=== PATIENT | female | born 1945 | race Caucasian/White ===

== ENCOUNTER 2021-03-25 17:30 | Inpatient (IN) | payer MEDICARE ==
[~2021-03-25] VITALS: Ht 162.6 cm; Wt 74.0 kg
[2021-03-25] MEDS ORDERED: FENTANYL CITRATE/PF 50MCG/ML 2ML VIAL IV ONE (17:45)
[2021-03-25] MEDS ORDERED: FENTANYL CITRATE/PF 50MCG/ML 2ML VIAL IV NR (17:45)
[2021-03-25 17:57] LABS: HEMATOCRIT. 43.5 % (36.0-48.0); HEMOGLOBIN. 14.5 g/dL (12.0-16.0); MEAN CORPUSCULAR HEMOGLOBIN 33.8 pg (28.0-32.0); MEAN CORPUSCULAR VOLUME 101.1 fL (81.0-99.0); MEAN PLATELET VOLUME 7.9 fl (7.4-10.4); PLATELET 228 x1000/uL (130-400); RED BLOOD CELL COUNT 4.31 mill/uL (4.2-5.4); RED CELL DISTRIBUTION WIDTH 13.6 % (11.6-14.6)
[2021-03-25] MEDS ORDERED: DILTIAZEM HCL 125 MG in DEXT 5% WATER 100 ML IV ONE (18:00)
[2021-03-25] MEDS ORDERED: DILTIAZEM HCL 5MG/ML 5ML VIAL IV PRN (18:00)
[2021-03-25 18:04] LABS: CHLORIDE 102 mEq/L (98-107)
[2021-03-25 18:06] LABS: INR 1.1; PROTHROMBIN TIME 11.6 sec (9.6-11.0)
[2021-03-25 18:08] LABS: ETHANOL BLOOD < 10 mg/dL
[2021-03-25 18:10] LABS: PHOSPHORUS 1.9 mg/dL (2.5-4.9)
[2021-03-25] MEDS ORDERED: DILTIAZEM HCL 125 MG in DEXT 5% WATER 100 ML IV NR (18:15)
[2021-03-25 18:29] LABS: PLATELET ESTIMATE NORMAL
[2021-03-25] MEDS ORDERED: ENOXAPARIN 80MG/0.8ML SYR SUBCUT NR (20:15)
[2021-03-25 23:00] LABS: CLARITY URINE CLOUDY (CLEAR); COLOR URINE DARK YELLOW (YELLOW); KETONES URINE TRACE (NEGATIVE); LEUKOCYTE ESTERASE URINE NEGATIVE (NEGATIVE); NITRITE URINE NEGATIVE (NEGATIVE); OCCULT BLOOD URINE NEGATIVE (NEGATIVE); PROTEIN URINE 1+ (NEGATIVE); SPECIFIC GRAVITY URINE 1.028 (1.005-1.030)
[2021-03-25 23:05] VITALS: BP 141/79
[2021-03-25 23:12] LABS: *BENZODIAZEPINES SCREEN URINE NEGATIVE (NEGATIVE); *COCAINE SCREEN URINE NEGATIVE (NEGATIVE); METHADONE URINE SCREEN NEGATIVE (NEGATIVE); OPIATES URINE SCREEN NEGATIVE (NEGATIVE)
[2021-03-25 23:13] LABS: *AMPHETAMINES SCREEN URINE NEGATIVE (NEGATIVE); *BARBITURATES SCREEN URINE NEGATIVE (NEGATIVE); CANNABINOID URINE SCREEN NEGATIVE (NEGATIVE); PHENCYCLIDINE URINE SCREEN NEGATIVE (NEGATIVE)
[2021-03-25] MEDS ORDERED: THYR30TA2 MT (23:23)
[2021-03-25 23:41] VITALS: BP 141/79
[2021-03-26] VITALS (19 sets, daily range): BP systolic 78–154; BP diastolic 48–95
[2021-03-26] MEDS ORDERED: DEXTROSE 50% WATER 50ML SYRINGE IV PRN (00:15)
[2021-03-26] MEDS: BLOOD SUGAR DIAGNOSTIC STRIP TEST SCH ×2 (06:22→11:25)
[2021-03-26] MEDS: INSULIN LISPRO 100 UNITS/ML SUBCUT SCH ×2 (06:22→11:44)
[2021-03-26 07:00] LABS: HEMATOCRIT. 38.5 % (36.0-48.0); HEMOGLOBIN. 13.1 g/dL (12.0-16.0); MEAN CORPUSCULAR HEMOGLOBIN 34.4 pg (28.0-32.0); MEAN CORPUSCULAR VOLUME 101.1 fL (81.0-99.0); MEAN PLATELET VOLUME 8.2 fl (7.4-10.4); PLATELET 192 x1000/uL (130-400); RED CELL DISTRIBUTION WIDTH 13.8 % (11.6-14.6)
[2021-03-26 07:09] LABS: CHLORIDE 103 mEq/L (98-107)
[2021-03-26 07:17] LABS: LDL CHOLESTEROL 56 mg/dL (5-100)
[2021-03-26 07:21] LABS: HDL CHOLESTEROL 77 mg/dL (40-59); T4 FREE 0.99 ng/dL (0.76-1.46)
[2021-03-26] MEDS: APIXABAN 5 MG TABLET PO SCH ×2 (08:13→16:08)
[2021-03-26] MEDS: METOPROLOL TARTRATE 50MG TABLET PO SCH ×2 (08:14→21:00)
[2021-03-26] MEDS: MAGNESIUM OXIDE 400MG TABLET PO SCH (08:14)
[2021-03-26] MEDS ORDERED: AMIODARONE HCL 150 MG in DEXT 5% WATER 100 ML IV ONE (08:30)
[2021-03-26] MEDS ORDERED: AMIODARONE HCL 900 MG in DEXT 5% WATER 482 ML IV SCH (09:00)
[2021-03-26] MEDS ORDERED: AMIODARONE HCL 150 MG in DEXT 5% WATER 100 ML IV SCH (09:00)
[2021-03-26] MEDS: SODIUM CHLORIDE 0.45% 1,000 ML IV SCH (11:44)
[2021-03-26] MEDS ORDERED: ONDANSETRON HCL 4MG/2ML INJ IV PRN ×2 (12:30)
[2021-03-26 14:20] LABS: PLATELET ESTIMATE NORMAL
[2021-03-27] VITALS (13 sets, daily range): BP systolic 82–130; BP diastolic 53–89
[2021-03-27] MEDS: SODIUM CHLORIDE 0.45% 1,000 ML IV SCH (00:15)
[2021-03-27] MEDS ORDERED: LACTULOSE 20G/30ML UDC PO SCH (08:00)
[2021-03-27] MEDS: BISACODYL 10MG SUPP PR SCH ×2 (08:00→10:34)
[2021-03-27] MEDS: SODIUM CHLORIDE 0.9% 1,000 ML IV SCH ×2 (09:48→20:27)
[2021-03-27] MEDS: APIXABAN 5 MG TABLET PO SCH (09:49)
[2021-03-27] MEDS: MAGNESIUM OXIDE 400MG TABLET PO SCH (09:49)
[2021-03-27 10:47] LABS: HEMATOCRIT. 42.7 % (36.0-48.0); HEMOGLOBIN. 13.9 g/dL (12.0-16.0); MEAN CORPUSCULAR HEMOGLOBIN 33.5 pg (28.0-32.0); MEAN CORPUSCULAR VOLUME 102.8 fL (81.0-99.0); RED BLOOD CELL COUNT 4.16 mill/uL (4.2-5.4); RED CELL DISTRIBUTION WIDTH 13.7 % (11.6-14.6)
[2021-03-27] MEDS ORDERED: SODIUM POLYSTYRENE SULFONATE 15 G/60 ML BOT PO NR (11:00)
[2021-03-27 11:11] LABS: PHOSPHORUS 5.1 mg/dL (2.5-4.9)
[2021-03-27] MEDS ORDERED: THYROID 30 MG PO SCH (11:15)
[2021-03-27 11:45] LABS: PLATELET ESTIMATE MARKEDLY DECREASED
[2021-03-27 11:50] LABS: PLATELET 30 x1000/uL (130-400)
[2021-03-27] MEDS: THYROID 60 MG PO SCH (15:30)
[2021-03-28] VITALS (12 sets, daily range): BP systolic 99–128; BP diastolic 52–75
[2021-03-28] MEDS: SODIUM CHLORIDE 0.9% 1,000 ML IV SCH ×2 (06:52→21:16)
[2021-03-28] MEDS: THYROID 60 MG PO SCH (06:52)
[2021-03-28 07:03] LABS: HEMATOCRIT. 41.4 % (36.0-48.0); HEMOGLOBIN. 13.6 g/dL (12.0-16.0); MEAN CORPUSCULAR HEMOGLOBIN 33.3 pg (28.0-32.0); MEAN CORPUSCULAR VOLUME 101.1 fL (81.0-99.0); MEAN PLATELET VOLUME 9.4 fl (7.4-10.4); RED BLOOD CELL COUNT 4.09 mill/uL (4.2-5.4); RED CELL DISTRIBUTION WIDTH 13.4 % (11.6-14.6)
[2021-03-28 07:26] LABS: PLATELET 24 x1000/uL (130-400)
[2021-03-28] MEDS: MAGNESIUM OXIDE 400MG TABLET PO SCH (09:09)
[2021-03-28 19:19] LABS: PLATELET ESTIMATE MARKEDLY DECREASED
[2021-03-29] VITALS (15 sets, daily range): BP systolic 105–147; BP diastolic 26–74
[2021-03-29] MEDS ORDERED: AMIODARONE HCL 900 MG in DEXT 5% WATER 482 ML IV SCH (03:00)
[2021-03-29 05:08] LABS: HEMATOCRIT. 39.3 % (36.0-48.0); HEMOGLOBIN. 13.3 g/dL (12.0-16.0); MEAN CORPUSCULAR HEMOGLOBIN 33.8 pg (28.0-32.0); MEAN CORPUSCULAR VOLUME 100.2 fL (81.0-99.0); MEAN PLATELET VOLUME 11.3 fl (7.4-10.4); RED BLOOD CELL COUNT 3.92 mill/uL (4.2-5.4); RED CELL DISTRIBUTION WIDTH 13.6 % (11.6-14.6)
[2021-03-29] MEDS: AMIODARONE HCL 200 MG TABLET PO SCH ×3 (05:42→21:35)
[2021-03-29] MEDS: SODIUM CHLORIDE 0.9% 1,000 ML IV SCH ×3 (05:43→21:36)
[2021-03-29] MEDS: THYROID 60 MG PO SCH (06:31)
[2021-03-29 06:35] LABS: PLATELET 33 x1000/uL (130-400)
[2021-03-29] MEDS: MAGNESIUM OXIDE 400MG TABLET PO SCH (08:12)
[2021-03-29] MEDS ORDERED: SODIUM POLYSTYRENE SULFONATE 15 G/60 ML BOT PO NR (11:30)
[2021-03-29 16:14] LABS: PLATELET ESTIMATE MARKEDLY DECREASED
[2021-03-30] VITALS (20 sets, daily range): BP systolic 104–132; BP diastolic 53–73
[2021-03-30] MEDS: THYROID 60 MG PO SCH (06:21)
[2021-03-30] MEDS: AMIODARONE HCL 200 MG TABLET PO SCH ×3 (06:21→22:04)
[2021-03-30 07:58] LABS: HEMATOCRIT. 39.5 % (36.0-48.0); HEMOGLOBIN. 13.5 g/dL (12.0-16.0); MEAN CORPUSCULAR HEMOGLOBIN 33.8 pg (28.0-32.0); MEAN CORPUSCULAR VOLUME 99.3 fL (81.0-99.0); MEAN PLATELET VOLUME 11.2 fl (7.4-10.4); RED BLOOD CELL COUNT 3.98 mill/uL (4.2-5.4); RED CELL DISTRIBUTION WIDTH 13.8 % (11.6-14.6)
[2021-03-30 08:03] LABS: PLATELET 30 x1000/uL (130-400)
[2021-03-30] MEDS: MAGNESIUM OXIDE 400MG TABLET PO SCH (08:33)
[2021-03-30 10:10] LABS: PLATELET ESTIMATE MARKEDLY DECREASED
[2021-03-30] MEDS ORDERED: LIDOCAINE HCL 1% 10 MG/ML 10ML VIAL ONE (10:38)
[2021-03-30 14:36] LABS: HEPATITIS B SURFACE ANTIGEN NEGATIVE
[2021-03-31] VITALS (12 sets, daily range): BP systolic 107–140; BP diastolic 57–79
[2021-03-31] MEDS: AMIODARONE HCL 200 MG TABLET PO SCH ×3 (05:05→21:04)
[2021-03-31] MEDS: THYROID 60 MG PO SCH (07:43)
[2021-03-31 08:36] LABS: HEMATOCRIT. 41.7 % (36.0-48.0); HEMOGLOBIN. 14.3 g/dL (12.0-16.0); MEAN CORPUSCULAR HEMOGLOBIN 34.2 pg (28.0-32.0); MEAN PLATELET VOLUME 9.1 fl (7.4-10.4); PLATELET 72 x1000/uL (130-400); RED BLOOD CELL COUNT 4.17 mill/uL (4.2-5.4); RED CELL DISTRIBUTION WIDTH 13.7 % (11.6-14.6)
[2021-03-31] MEDS: MAGNESIUM OXIDE 400MG TABLET PO SCH (08:36)
[2021-03-31 13:43] LABS: PLATELET ESTIMATE DECREASED
[2021-04-01] VITALS (12 sets, daily range): BP systolic 110–154; BP diastolic 58–86
[2021-04-01] MEDS: THYROID 60 MG PO SCH (06:18)
[2021-04-01] MEDS: AMIODARONE HCL 200 MG TABLET PO SCH ×3 (06:18→23:27)
[2021-04-01] MEDS: MAGNESIUM OXIDE 400MG TABLET PO SCH (08:22)
[2021-04-01 08:40] LABS: HEMATOCRIT. 41.8 % (36.0-48.0); HEMOGLOBIN. 13.9 g/dL (12.0-16.0); MEAN CORPUSCULAR HEMOGLOBIN 33.4 pg (28.0-32.0); MEAN CORPUSCULAR VOLUME 100.7 fL (81.0-99.0); PLATELET 96 x1000/uL (130-400); RED BLOOD CELL COUNT 4.15 mill/uL (4.2-5.4)
[2021-04-01 14:27] LABS: PLATELET ESTIMATE NORMAL
[2021-04-01] MEDS: APIXABAN 2.5 MG TABLET PO SCH (20:21)
[2021-04-02] VITALS (19 sets, daily range): BP systolic 106–153; BP diastolic 56–96
[2021-04-02] MEDS: AMIODARONE HCL 200 MG TABLET PO SCH ×3 (06:00→23:12)
[2021-04-02] MEDS ORDERED: THYROID 60MG TABLET PO SCH (09:00)
[2021-04-02 09:08] LABS: HEMATOCRIT. 40.8 % (36.0-48.0); HEMOGLOBIN. 13.9 g/dL (12.0-16.0); MEAN CORPUSCULAR HEMOGLOBIN 34.3 pg (28.0-32.0); MEAN CORPUSCULAR VOLUME 100.4 fL (81.0-99.0); MEAN PLATELET VOLUME 8.3 fl (7.4-10.4); PLATELET 100 x1000/uL (130-400); RED BLOOD CELL COUNT 4.06 mill/uL (4.2-5.4); RED CELL DISTRIBUTION WIDTH 14.1 % (11.6-14.6)
[2021-04-02] MEDS: MAGNESIUM OXIDE 400MG TABLET PO SCH (09:10)
[2021-04-02] MEDS: APIXABAN 2.5 MG TABLET PO SCH ×2 (09:10→23:12)
[2021-04-02 09:29] LABS: PHOSPHORUS 3.5 mg/dL (2.5-4.9)
[2021-04-02] MEDS: DILTIAZEM HCL 60MG TABLET PO SCH ×3 (10:27→23:12)
[2021-04-02 16:29] LABS: PLATELET ESTIMATE DECREASED
[2021-04-03] VITALS (11 sets, daily range): BP systolic 110–139; BP diastolic 54–81
[2021-04-03] MEDS: AMIODARONE HCL 200 MG TABLET PO SCH ×2 (05:44→17:43)
[2021-04-03] MEDS: DILTIAZEM HCL 60MG TABLET PO SCH ×3 (05:45→22:26)
[2021-04-03 07:26] LABS: BASOPHILS % 0.4 % (0.0-2.0); EOSINOPHILS % 1.1 % (0.0-5.0); HEMATOCRIT. 40.2 % (36.0-48.0); HEMOGLOBIN. 13.7 g/dL (12.0-16.0); LYMPHOCYTES % 8.4 % (20.0-50.0); MEAN CORPUSCULAR HEMOGLOBIN 34.3 pg (28.0-32.0); MEAN CORPUSCULAR VOLUME 100.1 fL (81.0-99.0); MEAN PLATELET VOLUME 8.1 fl (7.4-10.4); MONOCYTES % 5.9 % (2.0-8.0); NEUTROPHILS % 84.2 % (40.0-76.0); PLATELET 92 x1000/uL (130-400); RED BLOOD CELL COUNT 4.01 mill/uL (4.2-5.4); RED CELL DISTRIBUTION WIDTH 14.4 % (11.6-14.6)
[2021-04-03] MEDS: APIXABAN 2.5 MG TABLET PO SCH ×2 (08:31→20:27)
[2021-04-03] MEDS: MAGNESIUM OXIDE 400MG TABLET PO SCH (08:31)
[2021-04-03] MEDS ORDERED: ARMOUR THYROID 30 MG PO SCH (09:00)
[2021-04-04] VITALS (12 sets, daily range): BP systolic 105–134; BP diastolic 46–85
[2021-04-04] MEDS: DILTIAZEM HCL 60MG TABLET PO SCH (06:17)
[2021-04-04] MEDS: AMIODARONE HCL 200 MG TABLET PO SCH (06:17)
[2021-04-04 07:03] LABS: HEMATOCRIT. 37.9 % (36.0-48.0); HEMOGLOBIN. 12.7 g/dL (12.0-16.0); MEAN CORPUSCULAR HEMOGLOBIN 33.6 pg (28.0-32.0); MEAN PLATELET VOLUME 8.8 fl (7.4-10.4); PLATELET 95 x1000/uL (130-400); RED BLOOD CELL COUNT 3.79 mill/uL (4.2-5.4); RED CELL DISTRIBUTION WIDTH 14.1 % (11.6-14.6)
[2021-04-04] MEDS: APIXABAN 2.5 MG TABLET PO SCH ×2 (08:13→19:53)
[2021-04-04] MEDS: ARMOUR THYROID 30 MG PO SCH (08:14)
[2021-04-04] MEDS: MAGNESIUM OXIDE 400MG TABLET PO SCH (08:14)
[2021-04-04] MEDS: DILTIAZEM HCL 30MG TABLET PO SCH ×2 (12:00→17:08)
[2021-04-04 21:31] LABS: PLATELET ESTIMATE DECREASED
[2021-04-05] VITALS (13 sets, daily range): BP systolic 104–134; BP diastolic 53–93
[2021-04-05] MEDS: DILTIAZEM HCL 30MG TABLET PO SCH ×5 (01:50→17:14)
[2021-04-05 07:38] LABS: HEMOGLOBIN. 13.1 g/dL (12.0-16.0); MEAN CORPUSCULAR HEMOGLOBIN 34.3 pg (28.0-32.0); MEAN CORPUSCULAR VOLUME 99.9 fL (81.0-99.0); MEAN PLATELET VOLUME 8.6 fl (7.4-10.4); PLATELET 93 x1000/uL (130-400); RED BLOOD CELL COUNT 3.81 mill/uL (4.2-5.4); RED CELL DISTRIBUTION WIDTH 14.5 % (11.6-14.6)
[2021-04-05] MEDS: MAGNESIUM OXIDE 400MG TABLET PO SCH (08:05)
[2021-04-05] MEDS: ARMOUR THYROID 30 MG PO SCH (08:05)
[2021-04-05] MEDS: APIXABAN 2.5 MG TABLET PO SCH ×2 (08:05→20:35)
[2021-04-05] MEDS ORDERED: POTASSIUM CHLORIDE 20MEQ TABLET SR PO NR (09:00)
[2021-04-05] MEDS: AMIODARONE HCL 200 MG TABLET PO SCH (09:14)
[2021-04-05] MEDS ORDERED: LACTULOSE 20G/30ML UDC PO NR (11:00)
[2021-04-05] MEDS ORDERED: POTASSIUM CHLORIDE 20MEQ/PACKET PO NR (12:30)
[2021-04-05] MEDS: [UNRECOGNIZED DRUG - OTHER] XX SCH (15:12)
[2021-04-05] MEDS ORDERED: SODIUM CHLORIDE 0.9% 250 ML IV NR (17:07)
[2021-04-05] MEDS: DIGOXIN 500MCG/2ML AMP IV SCH (17:14)
[2021-04-05] MEDS ORDERED: DILTIAZEM HCL 5MG/ML 5ML VIAL IV NR (17:41)
[2021-04-05 19:03] LABS: PLATELET ESTIMATE DECREASED
[2021-04-06] VITALS (14 sets, daily range): BP systolic 108–158; BP diastolic 59–80
[2021-04-06] MEDS: DILTIAZEM HCL 30MG TABLET PO SCH ×5 (00:37→23:57)
[2021-04-06 07:17] LABS: HEMATOCRIT. 38.4 % (36.0-48.0); HEMOGLOBIN. 13.1 g/dL (12.0-16.0); MEAN PLATELET VOLUME 8.7 fl (7.4-10.4); PLATELET 94 x1000/uL (130-400); RED BLOOD CELL COUNT 3.84 mill/uL (4.2-5.4)
[2021-04-06 07:36] LABS: T4 FREE 0.74 ng/dL (0.76-1.46)
[2021-04-06] MEDS: ARMOUR THYROID 30 MG PO SCH (08:16)
[2021-04-06] MEDS: [UNRECOGNIZED DRUG - OTHER] XX SCH (08:16)
[2021-04-06] MEDS: APIXABAN 2.5 MG TABLET PO SCH ×2 (08:16→20:42)
[2021-04-06] MEDS: MAGNESIUM OXIDE 400MG TABLET PO SCH (08:16)
[2021-04-06] MEDS ORDERED: POTASSIUM CHLORIDE 20MEQ TABLET SR PO NR (09:45)
[2021-04-06] MEDS ORDERED: DILTIAZEM HCL 5MG/ML 5ML VIAL IV NR (09:45)
[2021-04-06] MEDS: AMIODARONE HCL 200 MG TABLET PO SCH (10:05)
[2021-04-06] MEDS ORDERED: DILTIAZEM HCL 125 MG in DEXT 5% WATER 100 ML IV SCH (11:30)
[2021-04-06] MEDS: DIGOXIN 500MCG/2ML AMP IV SCH (18:21)
[2021-04-06 19:20] LABS: PLATELET ESTIMATE DECREASED
[2021-04-07] VITALS (12 sets, daily range): BP systolic 125–152; BP diastolic 60–96
[2021-04-07] MEDS: DILTIAZEM HCL 30MG TABLET PO SCH (06:20)
[2021-04-07 07:39] LABS: HEMATOCRIT. 38.1 % (36.0-48.0); HEMOGLOBIN. 13.2 g/dL (12.0-16.0); MEAN CORPUSCULAR HEMOGLOBIN 34.4 pg (28.0-32.0); MEAN PLATELET VOLUME 9.1 fl (7.4-10.4); PLATELET 129 x1000/uL (130-400); RED BLOOD CELL COUNT 3.84 mill/uL (4.2-5.4); RED CELL DISTRIBUTION WIDTH 14.2 % (11.6-14.6)
[2021-04-07] MEDS: ARMOUR THYROID 30 MG PO SCH (08:06)
[2021-04-07] MEDS: APIXABAN 2.5 MG TABLET PO SCH ×2 (08:06→19:45)
[2021-04-07] MEDS: MAGNESIUM OXIDE 400MG TABLET PO SCH (08:06)
[2021-04-07] MEDS: CYANOCOBALAMIN 1000MCG TABLET PO SCH (08:06)
[2021-04-07] MEDS: [UNRECOGNIZED DRUG - OTHER] XX SCH (08:08)
[2021-04-07] MEDS ORDERED: DILTIAZEM HCL 60MG TABLET PO SCH (09:30)
[2021-04-07] MEDS: AMIODARONE HCL 200 MG TABLET PO SCH (10:28)
[2021-04-07 12:40] LABS: PLATELET ESTIMATE SLIGHTLY DECREASED
[2021-04-07] MEDS ORDERED: DILT180C66 MT (16:42)
[2021-04-07] MEDS ORDERED: APIX2.5T PO (16:42)
[2021-04-07] MEDS: DILTIAZEM HCL 60MG TABLET PO SCH ×2 (17:00→22:15)
[2021-04-08] VITALS (8 sets, daily range): BP systolic 105–141; BP diastolic 61–90
[2021-04-08] MEDS: DILTIAZEM HCL 60MG TABLET PO SCH (06:03)
[2021-04-08] MEDS ORDERED: [UNRECOGNIZED DRUG - REMARK] PO SCH (06:50)
[2021-04-08 07:55] LABS: HEMATOCRIT. 39.5 % (36.0-48.0); HEMOGLOBIN. 13.5 g/dL (12.0-16.0); MEAN CORPUSCULAR HEMOGLOBIN 33.5 pg (28.0-32.0); MEAN CORPUSCULAR VOLUME 97.7 fL (81.0-99.0); MEAN PLATELET VOLUME 8.2 fl (7.4-10.4); PLATELET 124 x1000/uL (130-400); RED BLOOD CELL COUNT 4.05 mill/uL (4.2-5.4)
[2021-04-08] MEDS: MAGNESIUM OXIDE 400MG TABLET PO SCH (08:24)
[2021-04-08] MEDS: APIXABAN 2.5 MG TABLET PO SCH (08:24)
[2021-04-08] MEDS: CYANOCOBALAMIN 1000MCG TABLET PO SCH (08:24)
[2021-04-08] MEDS: [UNRECOGNIZED DRUG - OTHER] XX SCH (08:25)
[2021-04-08] MEDS ORDERED: POTASSIUM CHLORIDE 20MEQ TABLET SR PO SCH (09:00)
[2021-04-08] MEDS: AMIODARONE HCL 200 MG TABLET PO SCH (11:10)
[2021-04-08 12:59] LABS: PLATELET ESTIMATE SLIGHTLY DECREASED
[2021-04-09] MEDS ORDERED: ARMOUR THYROID 30 MG PO SCH (09:00)
== END 2021-04-08 14:35 | disposition home or self-care (01) | DRG 308 ==
LOC: ER 17:30 → 3WST 20:32 → ENRESERV 21:33 → 3WST 03-30 09:49
PROVIDERS: ADMIT Internal Medicine; ATTEND Internal Medicine
PROC: 5A2204Z Restoration of Cardiac Rhythm, Single (ICD-10-PCS; principal; 2021-03-25)
PROC: 02HV33Z Insertion of Infusion Device into Superior Vena Cava, Percutaneous Approach (ICD-10-PCS; 2021-03-30)
PROC: 30233R1 Transfusion of Nonautologous Platelets into Peripheral Vein, Percutaneous Approach (ICD-10-PCS; 2021-03-30)
PROC: 5A1D70Z Performance of Urinary Filtration, Intermittent, Less than 6 Hours Per Day (ICD-10-PCS; 2021-03-30)
PROC: 5A1D70Z Performance of Urinary Filtration, Intermittent, Less than 6 Hours Per Day (ICD-10-PCS; 2021-03-31)
PROC: 5A1D70Z Performance of Urinary Filtration, Intermittent, Less than 6 Hours Per Day (ICD-10-PCS; 2021-04-02)
PROC: 5A1D70Z Performance of Urinary Filtration, Intermittent, Less than 6 Hours Per Day (ICD-10-PCS; 2021-04-04)
PROC: 5A1D70Z Performance of Urinary Filtration, Intermittent, Less than 6 Hours Per Day (ICD-10-PCS; 2021-04-05)
DX: I48.0 Paroxysmal atrial fibrillation (principal); N17.0 Acute kidney failure with tubular necrosis; C64.9 Malignant neoplasm of unspecified kidney, except renal pelvis; E87.1 Hypo-osmolality and hyponatremia; J84.9 Interstitial pulmonary disease, unspecified; E46 Unspecified protein-calorie malnutrition; B17.9 Acute viral hepatitis, unspecified; J90 Pleural effusion, not elsewhere classified; I42.9 Cardiomyopathy, unspecified; E83.42 Hypomagnesemia; E87.5 Hyperkalemia; I35.0 Nonrheumatic aortic (valve) stenosis; I95.2 Hypotension due to drugs; J44.9 Chronic obstructive pulmonary disease, unspecified; D69.6 Thrombocytopenia, unspecified; E66.9 Obesity, unspecified; L30.9 Dermatitis, unspecified; R73.9 Hyperglycemia, unspecified; E89.0 Postprocedural hypothyroidism; D64.9 Anemia, unspecified; E78.5 Hyperlipidemia, unspecified; E86.0 Dehydration; E87.6 Hypokalemia; N18.9 Chronic kidney disease, unspecified; I12.9 Hypertensive chronic kidney disease with stage 1 through stage 4 chronic kidney disease, or unspecified chronic kidney disease; Z20.822 Contact with and (suspected) exposure to COVID-19; I25.10 Atherosclerotic heart disease of native coronary artery without angina pectoris; I49.3 Ventricular premature depolarization; Z79.01 Long term (current) use of anticoagulants; Z79.899 Other long term (current) drug therapy; Z85.048 Personal history of other malignant neoplasm of rectum, rectosigmoid junction, and anus; Z85.850 Personal history of malignant neoplasm of thyroid; Z88.2 Allergy status to sulfonamides; Z88.8 Allergy status to other drugs, medicaments and biological substances; Z68.28 Body mass index [BMI] 28.0-28.9, adult; Z85.528 Personal history of other malignant neoplasm of kidney; Z92.3 Personal history of irradiation; Z92.21 Personal history of antineoplastic chemotherapy; Z86.19 Personal history of other infectious and parasitic diseases
CPT/HCPCS: 36415; 36556; 71045; 74018; 76700; 76770; 76937; 80048; 80053; 80061; 80076; 80305; 80320; 81003; 82550; 82570; 82575; 82962; 83036; 83605; 83615; 83735; 83880; 83930; 83935; 84100; 84300; 84439; 84443; 84484; 85025; 85049; 86022; 86705; 86706; 86709; 86803; 86850; 86900; 87340; 87426; 93005; 93306; 93923; 93970; 97116; 97162; 97166; 99291; C1752; J0282; J1160; J1650; J1815; J2405; J3010; J3490; J7030; J7040; J7060; P9034; G0480